=== PATIENT | male | born 1995 | race Caucasian/White ===

== ENCOUNTER 2023-08-21 03:19 | Emergency (ER) | payer BC, OTHER ==
[2023-08-21] MEDS ORDERED: Sodium Chloride 0.9% 10 ML Syringe FLUSH PRN (03:34)
== END 2023-08-21 03:50 | disposition left against medical advice (07) ==
LOC: JD.ED 03:19
DX: Z03.89 Encounter for observation for other suspected diseases and conditions ruled out (principal); Z88.0 Allergy status to penicillin
CPT/HCPCS: 99282; 99283

== ENCOUNTER 2024-02-15 19:38 | Emergency (ER) | payer BC ==
[2024-02-15] MEDS: Erythromycin Base 0.5% Ophth Oint 1 GM Tube EYEBOTH ONE (21:11)
[2024-02-15] MEDS: Proparacaine 0.5% Ophth Soln 15 ML Bottle EYELF ONE (21:12)
[2024-02-15] MEDS: Fluorescein 1 MG Ophth Strip EYELF ONE (21:12)
== END 2024-02-15 21:15 | disposition home or self-care (01) ==
LOC: JD.ED 19:38
DX: T15.02XA Foreign body in cornea, left eye, initial encounter (principal); Z88.0 Allergy status to penicillin; X58.XXXA Exposure to other specified factors, initial encounter
CPT/HCPCS: 65222; 99283; A9270; J3490